=== PATIENT | female | born 1965 | race Two or more races ===

== ENCOUNTER 2020-11-11 05:44 | Emergency (ER) | payer OTHER ==
[~2020-11-11] VITALS: Ht 162.6 cm; Wt 68.0 kg
[2020-11-11] MEDS ORDERED: HYZAAR 100-251 EACH PO (07:26)
[2020-11-12] MEDS ORDERED: VITAMIN D31250 MCG (19:06)
== END 2020-11-11 12:56 | disposition left against medical advice (07) ==
LOC: ER 05:44
DX: R53.83 Other fatigue (principal); E86.0 Dehydration; R42 Dizziness and giddiness

== ENCOUNTER 2020-11-12 18:54 | Inpatient (IN) | payer OTHER ==
[~2020-11-12] VITALS: Ht 162.6 cm; Wt 63.5 kg
[~2020-11-12 18:54] MED LIST: HYZAAR 100-251 EACH PO
[2020-11-12] MEDS ORDERED: VITAMIN D31250 MCG (19:06)
--- NOTE | 2020-11-12 19:07 | NUR ---
PTE SE RECIBE POR ABDOMINAL PAIN REFIERE PARAMEDICO FAMILIAR Y PTE.
--- NOTE | 2020-11-12 19:27 | NUR ---
PT ALERTA Y ORIENTADA X3 ESFERAS SE LE ORIENTA SOBRE TX Y REFIERE ENTEDER. SE MERCEDES MUESTRAS DE ROSMERY Y VENOPUNCION CON TECNICAS ASEPTICAS. SE ADMINISTRAN MEDICAMENTOS E IVLFUIDS ORDENADOS. PT TOLER[place].
--- NOTE | 2020-11-12 23:20 | NUR ---
PACIENTE ALERTA Y ORIENTADA X3. EN JERRI CON BARANDAS ELEVADAS Y INTERCOM ACCESIBLE. IV FLUID PATENTE Y BISI DE EDEMA Y ERITEMA. PENDIENTE XRAY ORDENADO POR . SE MANTIENE BAJO OBSERVACION POR CAMBIOS SIGNIFICATIVOS.
--- NOTE | 2020-11-13 02:47 | NUR ---
PACIENTE ALERTA Y ORIENTADA X3. SE ORIENTA SOBRE TX A RECIBIR Y REFIRIO ENTENDER. SE ADMINISTRO MEDICAMENTOS ORDENADOS POR MD. PENDIENTE ENTREGA DE CULTIVO DE ORINA. SE MANTIENE BAJO OBSERVACION POR CAMBIOS SIGNIFICATIVOS.
--- NOTE | 2020-11-13 07:18 | NUR ---
SE RECIBE PACIENTE FEMENINA ALERTA Y ORIENTADA EN [place] ESFER[place]. PACIENTE BISI DE DOLOR ALMOMENTO Y PENDIENTE A CONSULTA CON DR. Fabricio CHAVEZ. SE MANTIENE PACIENTE BAJO OBSERVACION Y SE OFRECEN RONDAS PREVENTIVAS.
[2020-11-13] MEDS ORDERED: FAMOTIDINE20 MG (11:10)
[2020-11-13] MEDS ORDERED: VITAMIN D21250 MCG (11:10)
[2020-11-13] MEDS ORDERED: LEVOFLOXACIN500 MG (11:10)
== END 2020-11-25 15:39 | disposition designated cancer center or children's hospital (05) | DRG 690 ==
LOC: ER 18:54 → SEC-K 11-13 10:11 → MEDI 11-14 13:01 → SEC-K 11-14 13:15 → MEDI 11-14 13:31
PROVIDERS: ADMIT Internal Medicine; ATTEND Internal Medicine
PROC: BW40ZZZ Ultrasonography of Abdomen (ICD-10-PCS; 2020-11-14)
PROC: BW4GZZZ Ultrasonography of Pelvic Region (ICD-10-PCS; 2020-11-14)
PROC: BW2110Z Computerized Tomography (CT Scan) of Abdomen and Pelvis using Low Osmolar Contrast, Unenhanced and Enhanced (ICD-10-PCS; 2020-11-16)
PROC: CF2YYZZ Tomographic (Tomo) Nuclear Medicine Imaging of Hepatobiliary System and Pancreas using Other Radionuclide (ICD-10-PCS; 2020-11-17)
PROC: B24BYZZ Ultrasonography of Heart with Aorta using Other Contrast (ICD-10-PCS; 2020-11-19)
PROC: BW2410Z Computerized Tomography (CT Scan) of Chest and Abdomen using Low Osmolar Contrast, Unenhanced and Enhanced (ICD-10-PCS; 2020-11-20)
PROC: 02HV33Z Insertion of Infusion Device into Superior Vena Cava, Percutaneous Approach (ICD-10-PCS; principal; 2020-11-22)
DX: N39.0 Urinary tract infection, site not specified (principal); I05.9 Rheumatic mitral valve disease, unspecified; I11.0 Hypertensive heart disease with heart failure; I50.9 Heart failure, unspecified; D72.829 Elevated white blood cell count, unspecified; R11.2 Nausea with vomiting, unspecified; Z20.822 Contact with and (suspected) exposure to COVID-19